=== PATIENT | female | born 1975 | race African-American/Black ===

== ENCOUNTER 2020-05-21 00:03 | Outpatient (CLI) | payer OTHER, SELFPAY ==
[2020-05-21 20:03] LABS: SARS-CoV-2 RNA PCR Negative
== END 2020-05-21 00:04 | disposition home or self-care (01) ==
LOC: ANHCOVIDDT 00:13
PROVIDERS: Visit Provider Student in an Organized Health Care Education/Training Program
DX: Z01.818 Encounter for other preprocedural examination (principal); Z11.59 Encounter for screening for other viral diseases
CPT/HCPCS: 87635; C9803; U0003

== ENCOUNTER 2020-05-21 08:00 | Outpatient (CLI) | payer OTHER, SELFPAY ==
[2020-05-21 08:31] LABS: Basophils Absolute Auto 0.1 K/mm3 (0.0-0.1); Basophils Percent Auto 0.7 % (0.2-1.2); Eosinophils Absolute Auto 0.3 K/mm3 (0-0.3); Eosinophils Percent Auto 4.3 % (0-4.4); Hematocrit 40.8 % (37.0-47.0); Hemoglobin 13.2 g/dL (12.0-15.0); Immature Granulocyte Absolute 0.01 K/mm3 (0.00-0.031); Immature Granulocyte Percent A 0.1 % (0-0.5); Lymphocytes Absolute Auto 2.99 K/mm3 (0.9-3.2); Lymphocytes Percent Auto 40.4 % (18.3-44.2); Mean Corpuscular HGB Conc 32.4 g/dl (32-36); Mean Corpuscular Hemoglobin 30.3 pg (26-34); Mean Corpuscular Volume 93.8 fl (80-100); Mean Platelet Volume 10.3 fl (7.4-10.4); Monocytes Absolute Auto 0.7 K/mm3 (0.1-0.6); Monocytes Percent Auto 8.8 % (2.6-8.5); Neutrophils Absolute Auto 3.4 K/mm3 (1.3-6.7); Neutrophils Percent Auto 45.7 % (45.5-73.1); Platelet Count Result 375 k/mm3 (150-375); Red Blood Count 4.35 M/mm3 (4.2-5.4); Red Cell Distribution Width 12.1 % (11.5-14.5); White Blood Count 7.4 K/mm3 (4.5-10.0)
== END 2020-05-21 08:01 | disposition home or self-care (01) ==
PROVIDERS: PCP Nurse Practitioner Family; Visit Provider Student in an Organized Health Care Education/Training Program
DX: Z01.818 Encounter for other preprocedural examination (principal); N94.6 Dysmenorrhea, unspecified
CPT/HCPCS: 36415; 85025; 86850; 86900; 86901

== ENCOUNTER 2020-05-23 11:03 | Inpatient (IN) | payer OTHER, SELFPAY ==
[2020-05-10 10:43] VITALS: BMI 45.3
--- NOTE | 2020-05-22 15:41 | PM.IMHP ---
H&P: HPI History of Present Illness Chief complaint: menorrhaghia, dysmenorrhea Narrative: Sue Andrade is a 44 year old female with a long history of AUB and dysmenorrhea. Patient is status post endometrial ablation in September 2019. Patient reported bothersome spotting after procedure and self-initiated OCPs. At postoperative visit, patient was advised to discontinue OCPs to further assess the effects of procedure. She was seen for an annual visit in 12/2019 and reported complete cessation of bleeding. Patient states that in January 2020, menses resumed and she bled for 5 days during the first week of the month. She reported onset of severe cramping a few days prior to onset of menses as well as during menses. States that cramping is so severe that it radiates inferiorly to inner thigh and back of thigh. She takes Ibuprofen with minimal relief. Reports similar occurrence with menses in February and March. States that she does not experience pain other than with menses, however, ablation did not completely stop menses. Patient declines further medical management and would like to proceed with a hysterectomy. Review of Systems Review of Systems: All systems reviewed & are unremarkable except as noted in HPI and below Constitutional: Constitutional: Reports as per HPI, Reports no additional constitutional complaints, Denies chills, Denies fever(s), Denies headache(s) and Denies night sweats Eyes: Eyes: Reports as per HPI and Reports no additional eye complaints ENT: Reports system reviewed and no additional complaints, except as documented, Reports as per HPI, Reports Normal hearing present and Denies headache(s) Cardiovascular: Cardiovascular: Reports as per HPI, Reports no additional cardiovascular complaints, Denies chest pain and Denies dyspnea Respiratory: Respiratory: Reports as per HPI, Reports no additional respiratory complaints, Denies cough and Denies dyspnea Gastrointestinal: Gastrointestinal: Reports as per HPI, Reports no additional gastrointestinal complaints, Denies abdominal pain, Denies change in bowel habits, Denies change in stool character, Denies nausea and Denies vomiting Genitourinary: Genitourinary: Reports no additional female genitourinary complaints, Reports as per HPI, Denies abnormal vaginal bleeding, Denies genital lesions, Denies hot flashes, Denies dyspareunia, Reports dysmenorrhea, Denies pelvic pain, Denies sexual dysfunction, Denies urinary incontinence, Denies vaginal discharge, Denies vaginal dryness and Denies vaginal odor Musculoskeletal: Musculoskeletal: Reports no additional musculoskeletal complaints and Reports as per HPI Integumentary/Breasts: Skin/Breast: Reports system reviewed and no additional complaints, except as docu, Reports as per HPI, Denies breast pain and Denies nipple discharge Neurologic: Reports system reviewed and no additional complaints, except as documented, Reports as per HPI, Reports Normal hearing present and Denies headache(s) Psychiatric: Psychiatric: Reports no additional psychiatric complaints, Reports as per HPI, Denies anxiety and Denies depression Endocrine: Endocrine: Reports no additional endocrine complaints and Reports as per HPI Hematologic/Lymphatic: Hematologic/Lymphatic: Reports no additional hematologic/lymphatic complaints and Reports as per HPI Allergic/Immunologic: Allergic/Immunologic: Reports no additional allergic/immunologic complaints and Reports as per HPI [facility] Social History Social History Smoking status: Never smoker Second hand tobacco smoke exposure: No Alcohol intake: current Drinks per week: 2 (NONE IN LAST WEEK) Substance use: never Meds Home Medications and Allergies Home Medications Medication Instructions Recorded Confirmed Type cholecalciferol (vitamin D3) 400 unit PO DAILY 09/26/19 05/10/20 History [Vitamin D3] fluticasone propionate 1 spray EACHNARE DAILY 09/26/1904/17
[2020-05-23] VITALS (21 sets, daily range): BP systolic 109–131; BP diastolic 62–81; PULSE 86–117; RESP 12–24; TEMP 36.2–37.9; O2SAT 92–100
[2020-05-23] MEDS: LACTATED RINGERS 1,000 ML 30 ML IV CONT ×3 (07:00→12:20)
--- NOTE | 2020-05-23 07:03 | WPDANESEPPF ---
Anes - Initial Pre Proc Eval Procedure: Operation Date: 05/23/20 07:30 Proposed Procedures p Total Abdominal Hysterectomy, Bilateral Salpingectomy - Ashley Cates MD Date/Time: 05/23/20 07:03 Surgeon: Ashley Cates MD Pre Op Diagnosis: menorrhaghia, dysmenorrhea Patient Data Age: 44 Gender: F Height: 5 ft 4 in Weight: 119.75 kg Allergies Allergy/AdvReac Type Severity Reaction Status Date / Time No Known Allergies Allergy Verified 05/10/20 10:44 Home Medications Medication Instructions Recorded Confirmed Type cholecalciferol (vitamin D3) 400 unit PO DAILY 09/26/19 05/10/20 History [Vitamin D3] fluticasone propionate 1 spray EACHNARE DAILY 09/26/19 05/10/20 History melatonin 5 mg PO HS PRN 09/26/19 05/10/20 History modafinil 200 mg PO QAM 09/26/19 05/10/20 History omeprazole 20 mg PO DAILY 09/26/19 05/10/20 History triamcinolone acetonide 1 applic TOPICAL PRN 09/26/19 05/10/20 History [place] 1 tablet PO DAILY 05/10/20 History Vitamin C 1 tablet PO DAILY 05/10/20 05/10/20 History biotin 10,000 mcg PO DAILY 05/10/20 05/10/20 History citalopram 20 mg PO DAILY PRN 05/10/20 05/10/20 History cyanocobalamin (vitamin B-12) 1,000 mcg PO DAILY 05/10/20 05/10/20 History [Vitamin B-12] multivitamin 1 tablet PO DAILY 05/10/20 05/10/20 History ondansetron HCl 8 mg PO DIRECTED PRN 05/10/20 05/10/20 History potassium gluconate 595 mg PO DAILY 05/10/20 05/10/20 History vitamin E 400 unit PO DAILY 05/10/20 05/10/20 History Patient hx anesthesia problems: none Family hx anesthesia problems: none PMFSH Past Medical History Medical History Abnormal uterine bleeding Anxiety Depression GERD (gastroesophageal reflux disease) BETTINA (obstructive sleep apnea) CPAP Surgical History Surgical History delivery delivered X 4 Gastric bypass status for obesity S/P endometrial ablation Status post bilateral breast reduction 1999 Family History Family History Sibling Diabetes mellitus Family history of malignant neoplasm of cervix Other Cerebrovascular accident Family history of malignant neoplasm of breast in first degree relative Social History Social History Smoking status: Never smoker Second hand tobacco smoke exposure: No Alcohol intake: current Drinks per week: 2 (NONE IN LAST WEEK) Substance use: never Anes - Eval Final PreProcedure Day of Procedure 05/23/20 07:03 Patient weight: morbidly obese Heart: regular rate and rhythm Lungs: clear to auscultation Airway: Mallampati scale class II Neurological: alert and oriented Last oral intake: >/= 8 hours ASA classification: III Emergent: no Anesthetic plan: proceed Anesthesia type and monitoring: general ETT and standard monitoring Informed Consent: The patient's anesthetic plan and its attendant risks and benefits were discussed with the patient/family/POA. Questions were solicited and answers provided to the satisfaction of the patient/family/POA.
[2020-05-23] MEDS: ACETAMINOPHEN 500 MG TABLET 1000 MG PO (07:10)
--- NOTE | 2020-05-23 07:19 | WPDHPUPDATE1 ---
History and Physical Update Update Date/Time: 05/23/20 07:19 History and Physical has been reviewed, including an updated exam of the patient. There are NO changes in the patient's condition. Risks, benefits, and alternatives have been discussed and questions answered. Patient agrees to proceed with procedure.
[2020-05-23] MEDS: PHENAZOPYRIDINE HCL 100 MG TABLET 200 MG PO (07:20)
[2020-05-23] MEDS: SCOPOLAMINE 1.5 MG PATCH TRANSDERM (07:24)
[2020-05-23] MEDS: ceFAZolin 2 GM/D5W 50 ML 2 GM/50 ML BAG IVPB (07:33)
[2020-05-23] MEDS: KETOROLAC 30 MG/ML VIAL (*BKC) IV PUSH (10:03)
[2020-05-23] MEDS: DEXTROSE 5%/0.45% SOD CHL 1,000 ML 150 ML IV CONT ×2 (13:10→21:57)
--- NOTE | 2020-05-23 13:22 | PM.PROC ---
Procedure Note - Detailed Date of procedure: 05/23/20 Pre-op diagnosis: menorrhaghia, dysmenorrhea Post-op diagnosis: same Procedure performed: Total abdominal hysterectomy Bilateral salpingectomy Description of procedure: The patient was taken to the operating room where she self transferred to the operating room table. She was placed in the dorsal supine position. General anesthesia was administered and found to be adequate. The patient was prepped and draped in the usual sterile fashion. A Pfannenstiel skin incision was made with a scalpel and carried through to the underlying layer of fascia with the Bovie. The fascia was incised in the midline and the incision was extended laterally with the use of forceps and Cerrato scissors. The inferior aspect of the fascial incision was grasped with Siva clamps, elevated, and the underlying rectus muscles were dissected off with Cerrato scissors. Attention was turned to the superior aspect of the fascial incision, which in a similar manner was grasped with Siva clamps, elevated, and the underlying rectus muscles also dissected off with Cerrato scissors. Dense, thick adhesions and scar tissue were noted in the midline making entry into the peritoneal cavity difficult in this area. Decision was made to access and enter peritoneal cavity just lateral to the midline. The right rectus muscle was transected approximately 1.5 cm to the right side to facilitate visualization and entry into the peritoneal cavity. The peritoneum was identified and grasped with Allis clamps and entered sharply with Metzenbaum scissors. the uterus and surrounding structures were palpated with fingers and noted to be free of any posterior or lateral adhesions. Due to the dense adhesions from the anterior surface of the uterus to the abdominal wall, with fingers placed around the fundus of the uterus, dissection beneath the fascia anterior to the uterus continued with Bovie as well as sharp dissection with Cerrato scissors until the uterus was completely freed and mobilized. Two lap pads were placed in the abdomen to displace the bowel cephalad and laterally. Pean clamps were placed near the left and right uterine cornua for traction and elevation. The cervix was well visualized and palpated. The bladder was noted to be mostly inferior to the cervix. The right round ligament was identified, grasped with Wilmar clamp, and suture ligated. The round ligament was transected with Bovie. The anterior leaf of the broad ligament was carefully dissected towards the midline. An incision in the posterior leaf of the broad ligament on the right side was created with the Bovie. The right fallopian tube was identified and grasped with a Wilmar clamp. The LigaSure device was used to transect the mesosalpinx beneath the tube to the level of the cornua. The LigaSure device was then used to transect the utero-ovarian ligament on the right side. Dissection of the posterior leaf of the broad ligament was performed. The uterine artery was skeletonized and well visualized. The LigaSure device was used to cauterize the uterine artery on this side. The cardinal ligaments were serially ligated and transected with the use of LigaSure device until the level of uterosacral ligaments was reached. Attention was then turned to the patient's left side. The left round ligament was identified, grasped with a [place] clamp, and suture ligated. The round ligament was transected with the Bovie and the anterior leaf of the broad ligament was carefully dissected towards the midline. The opposing ends were joined in the midline and a bladder flap was created to ensure the bladder was adequately displaced inferiorly. An incision in the posterior leaf of the broad ligament on the left side was created with the Bovie. The left fallopian tube was identified and grasped with Wilmar clamp. The LigaSure device was used to transect the mesosalpinx beneath the tube to the level of the cornua. The LigaSure de
[2020-05-23] MEDS: IBUPROFEN IV 800 MG/200 ML 800 MG/200 ML BAG 400 MG IVPB (19:56)
--- NOTE | 2020-05-23 19:57 | OBPPTRN ---
Patient transferred to post room #289 via bed. Oriented to unit, room, information board, admission packet and security measures. Patient verbalizes understanding.
[2020-05-23] MEDS: DICLOFENAC SODIUM 0.1% OPHTH SOLN 2.5 ML BOTTLE 1 DROP EACH EYE (20:00)
[2020-05-23] MEDS: IBUPROFEN 400 MG TABLET 800 MG PO (21:26)
[2020-05-23] MEDS: PROPARACAINE HCL 0.5% 15 ML OPHTH SOLN 1 DROP EACH EYE (21:42)
[2020-05-24 00:30] VITALS: BP 122/65; PULSE 119; RESP 12; TEMP 37.4
[2020-05-24] MEDS: IBUPROFEN 400 MG TABLET 800 MG PO ×3 (03:07→18:25)
[2020-05-24 05:00] VITALS: BP 121/77; PULSE 111; RESP 14; TEMP 36.2
[2020-05-24 05:42] LABS: Basophils Percent Auto 0.2 % (0.2-1.2); Eosinophils Percent Auto 0.1 % (0-4.4); Hematocrit 35.6 % (37.0-47.0); Hemoglobin 11.4 g/dL (12.0-15.0); Immature Granulocyte Absolute 0.05 K/mm3 (0.00-0.031); Immature Granulocyte Percent A 0.3 % (0-0.5); Lymphocytes Absolute Auto 1.76 K/mm3 (0.9-3.2); Lymphocytes Percent Auto 11.2 % (18.3-44.2); Mean Corpuscular Hemoglobin 30.5 pg (26-34); Mean Corpuscular Volume 95.2 fl (80-100); Mean Platelet Volume 10.5 fl (7.4-10.4); Monocytes Absolute Auto 1.4 K/mm3 (0.1-0.6); Monocytes Percent Auto 9.2 % (2.6-8.5); Neutrophils Absolute Auto 12.4 K/mm3 (1.3-6.7); Platelet Count Result 320 k/mm3 (150-375); Red Blood Count 3.74 M/mm3 (4.2-5.4); Red Cell Distribution Width 12.4 % (11.5-14.5); White Blood Count 15.7 K/mm3 (4.5-10.0)
[2020-05-24 05:56] LABS: Blood Urea Nitrogen 6 mg/dL (7-17); Calcium 8.4 mg/dL (8.4-10.2); Carbon Dioxide 28 mmol/L (22-30); Chloride 98 mmol/L (98-107); Estimated CRCL calculation 110 ml/min; Estimated Glomerular Filt Rate > 60; Glucose 351 mg/dL (65-105); Potassium 3.9 mmol/L (3.4-5.0); Sodium 132 mmol/L (137-145)
--- NOTE | 2020-05-24 07:22 | P.PNAN_ITS ---
Anes - Prog Note Post-Op Date/Time: 05/24/20 07:22 Cardiovascular status: normal Respiratory status: normal Airway patency: baseline Mental status: baseline Post-Op hydration status: normal Vital Signs: Last Vital Signs Temp 36.2 C L 05/24/20 05:00 Pulse 111 H 05/24/20 05:00 Resp 14 05/24/20 05:00 BP 121/77 05/24/20 05:00 Pulse Ox 96 05/23/20 17:30 I/O: Intake & Output 05/23/20 05/23/20 05/24/20 15:59 23:59 07:59 Intake Total 7602 622 8976 Output Total 575 1000 2800 Balance 831 -700 -121 Laboratory Tests 05/24/20 04:42 05/24/20 04:42 05/24/20 05/24/20 04:42 04:42 WBC 15.7 H RBC 3.74 L Hgb 11.4 L Hct 35.6 L MCV 95.2 MCH 30.5 MCHC 32.0 RDW 12.4 Plt Count 320 MPV 10.5 H Immature Gran % (Auto) 0.3 Neut % (Auto) 79.0 H Lymph % (Auto) 11.2 L [place] % (Auto) 9.2 H Eos % (Auto) 0.1 Baso % (Auto) 0.2 Lymph # (Auto) 1.76 [place] # (Auto) 1.4 H Eos # (Auto) 0.0 Baso # (Auto) 0.0 Abs Immat Gran (auto) 0.05 H Absolute Neuts (auto) 12.4 H Absolute Nucleated RBC 0.0 Nucleated RBC % 0.0 Sodium 132 L Potassium 3.9 Chloride 98 Carbon Dioxide 28 BUN 6 L Creatinine 0.70 Estim Creat Clear Calc 110 Estimated GFR > 60 Glucose 351 H Calcium 8.4 Post-procedural complaints: none Patient Feedback: Patient satisfied with anesthetic care.
--- NOTE | 2020-05-24 07:27 | PM.GYNPNOP ---
TOOL AND DIE REPAIR - A/P Assessment and plan (1) H/O: hysterectomy: Code(s): Z90.710 - Acquired absence of both cervix and uterus Status: Acute Assessment and Plan: POD#1 s/p NAI, bilateral salpingectomy Doing well Continue routine postop care Encourage ambulation and use of IS Continue PO pain medication Possible d/c home tomorrow Postoperative Procedures: Procedures Operation Date: 05/23/20 07:30 Actual Procedures Side Surgeon p Total Abdominal Hysterectomy, Bilateral Salpingectomy Bilateral Ashley Cates MD Time Spent With Patient Time: Total time spent is greater than 50% in coordination of care (as documented) at patient's floor/unit and/or counseling patient: Time with patient: less than 15 minutes TOOL AND DIE REPAIR- PN:Subj Post-Op Subjective Date/time seen: 05/24/20 07:27 Patient doing well. IV infiltrated last night and was removed. Patient declined to have IV reinserted. Had eye discomfort yesterday, resolved. She reports adequate pain control with PO pain medication. Denies any headache, chest pain, SOB, N/V. Tolerating clears. Ambulating well. Gutierrez catheter removed. Has voided. +flatus. Exam Const: General: comfortable and no acute distress Resp: Auscultation: clear to auscultation bilaterally Cardio: Rate: regular rate Rhythm: regular rhythm GI: Inspection: non-distended GI Palp: Yes Soft to palpation and No Tenderness to palpation present (GI) Other: abdominal binder in place, incision c/d/i Extrem: Right lower extremity: no edema Left lower extremity: no edema Other: no calf tenderness TOOL AND DIE REPAIR - PN: Obj Data Vital Signs Vital Signs: Vital Signs - 24 hr 05/23/20 10:53 05/23/20 11:05 05/23/20 11:19 Temperature 36.2 C L Pulse Rate 92 86 89 Respiratory Rate 24 H 21 H 21 H Blood Pressure 111/62 116/72 116/72 Pulse Oximetry 99 99 99 05/23/20 11:40 05/23/20 11:55 05/23/20 12:10 Temperature Pulse Rate 92 96 95 Respiratory Rate 18 17 16 Blood Pressure 114/74 121/81 121/77 Pulse Oximetry 100 99 05/23/20 12:25 05/23/20 12:40 05/23/20 12:50 Temperature 36.4 C Pulse Rate 103 H 105 H 106 H Respiratory Rate 19 20 18 Blood Pressure 117/75 109/75 Pulse Oximetry 95 92 92 05/23/20 12:58 05/23/20 13:15 05/23/20 13:30 Temperature 36.6 C Pulse Rate 116 H 96 101 H Respiratory Rate 16 Blood Pressure 118/75 127/81 119/76 Pulse Oximetry 96 98 95 05/23/20 14:00 05/23/20 14:30 05/23/20 15:29 Temperature Pulse Rate 103 H 104 H Respiratory Rate 16 Blood Pressure 117/71 115/74 Pulse Oximetry 95 96 99 05/23/20 15:30 05/23/20 16:30 05/23/20 16:57 Temperature 37.4 C Pulse Rate 95 104 H 110 H Respiratory Rate 16 16 Blood Pressure 120/78 131/79 122/76 Pulse Oximetry 99 100 96 05/23/20 17:30 05/23/20 20:30 05/24/20 00:30 Temperature 37.9 C H 37.4 C Pulse Rate 117 H 119 H Respiratory Rate 16 12 12 Blood Pressure 129/81 122/65 Pulse Oximetry 96 05/24/20 05:00 Temperature 36.2 C L Pulse Rate 111 H Respiratory Rate 14 Blood Pressure 121/77 Pulse Oximetry Intake/Output Intake/Output: Intake & Output 05/21/20 05/22/20 05/23/20 05/24/20 23:59 23:59 23:59 23:59 Intake Total 1550 2200 Output Total 1575 2800 Balance -25 -600 Meds/Results Medications: Active Medications Generic Name Dose Route Start Last Admin Trade Name Freq PRN Reason Stop Dose Admin Hydrocodone Bitart/Acetaminophen 1 tab 05/23/20 11:03 [place] 5-325 Mg PO Q3H PRN Pain Rated 5 or Less Hydrocodone Bitart/Acetaminophen 1 tab 05/23/20 11:03 05/24/20 04:57 [place] 10-325 Mg PO 1 tab Q3H PRN Administration Pain Rated 6 or Greater Artificial Tears 1 drop 05/23/20 16:29 05/23/20 21:53 Artificial Tears EACH EYE 1 drop Q2H PRN Administration Dry Eye(s) Citalopram Hydrobromide 20 mg 05/24/20 06:48 Celexa PO DAILY PRN Anxiety Diclofenac Sodium 1 drop 05/23/20 22:00 05/23/20 20:00 Voltaren 0.1% Ophth Tamika
[2020-05-24 08:30] VITALS: BP 118/75; PULSE 102; RESP 22; TEMP 36.9; O2SAT 96
[2020-05-24] MEDS: PANTOPRAZOLE 40 MG TABLET PO (08:35)
[2020-05-24] MEDS: DOCUSATE SODIUM 100 MG CAPSULE PO ×2 (08:38→18:26)
[2020-05-24] MEDS: PANTOPRAZOLE SOD SESQUIHYDRATE 20 MG TAB PO (08:39)
[2020-05-24] MEDS: SIMETHICONE 80 MG TAB.CHEW PO (19:24)
[2020-05-24 21:29] VITALS: BP 122/78; PULSE 119; RESP 14; TEMP 37.6
[2020-05-25] MEDS: IBUPROFEN 400 MG TABLET 800 MG PO (02:48)
[2020-05-25] MEDS: DOCUSATE SODIUM 100 MG CAPSULE PO (07:42)
[2020-05-25 07:45] VITALS: BP 127/92; PULSE 98; RESP 18; TEMP 37.1; O2SAT 98
--- NOTE | 2020-05-25 08:28 | PM.GYNPNOP ---
EDUCATION DEPARTMENT CHAIR - A/P Assessment and plan (1) H/O: hysterectomy: Code(s): Z90.710 - Acquired absence of both cervix and uterus Status: Acute Assessment and Plan: POD#2 s/p NAI, b/l salpingectomy Doing well Continue routine postop care Discharge home today in stable condition Emergency precautions reviewed F/u at postop visit in 2 weeks unless indicated sooner Postoperative Procedures: Procedures Operation Date: 05/23/20 07:30 Actual Procedures Side Surgeon p Total Abdominal Hysterectomy, Bilateral Salpingectomy Bilateral Ashley Cates MD Time Spent With Patient Time: Total time spent is greater than 50% in coordination of care (as documented) at patient's floor/unit and/or counseling patient: Time with patient: less than 15 minutes EDUCATION DEPARTMENT CHAIR- PN:Subj Post-Op Subjective Date/time seen: 05/25/20 08:28 Patient doing well this morning. Reports adequate pain control with PO pain medication. Denies any headache, chest pain, shortness of breath, nausea, or vomiting. Tolerating regular diet. Ambulating well. Voiding without difficulty. Positive flatus. No bowel movement. Exam Const: General: comfortable and no acute distress Resp: Auscultation: clear to auscultation bilaterally Cardio: Rate: regular rate Rhythm: regular rhythm GI: GI Palp: Yes Soft to palpation and No Tenderness to palpation present (GI) Auscultation: normal bowel sounds Other: nondistended, inc c/d/i Extrem: Right lower extremity: no edema Left lower extremity: no edema Other: no calf tenderness EDUCATION DEPARTMENT CHAIR - PN: Obj Data Vital Signs Vital Signs: Vital Signs - 24 hr 05/24/20 08:30 05/24/20 21:29 Temperature 36.9 C 37.6 C Pulse Rate 102 H 119 H Respiratory Rate 22 H 14 Blood Pressure 118/75 122/78 Pulse Oximetry 96 Intake/Output Intake/Output: Intake & Output 05/22/20 05/23/20 05/24/20 05/25/20 23:59 23:59 23:59 23:59 Intake Total 1550 2200 Output Total 1575 3600 Balance -25 -1400 Meds/Results Medications: Active Medications Generic Name Dose Route Start Last Admin Trade Name Freq PRN Reason Stop Dose Admin Hydrocodone Bitart/Acetaminophen 1 tab 05/23/20 11:03 [place] 5-325 Mg PO Q3H PRN Pain Rated 5 or Less Hydrocodone Bitart/Acetaminophen 1 tab 05/23/20 11:03 05/25/20 07:42 [place] 10-325 Mg PO 1 tab Q3H PRN Administration Pain Rated 6 or Greater Artificial Tears 1 drop 05/23/20 16:29 05/23/20 21:53 Artificial Tears EACH EYE 1 drop Q2H PRN Administration Dry Eye(s) Citalopram Hydrobromide 20 mg 05/24/20 06:48 Celexa PO DAILY PRN Anxiety Diclofenac Sodium 1 drop 05/23/20 22:00 05/25/20 06:25 Voltaren 0.1% Ophth Soln EACH EYE 05/27/20 22:01 Not Given Q8HR BOB Docusate Sodium 100 mg 05/23/20 17:00 05/25/20 07:42 Colace Capsule PO 100 mg BID BOB Administration Hydromorphone HCl 6 mg in 30 mls @ 0 mls/hr 05/23/20 13:12 05/23/20 15:29 Dilaudid 0.2 Mg/Ml [place] IV CONT 1 ml/hr .Q0M PRN 1 mls/hr DIABETOLOGIST Management Administration Protocol Per Protocol Ibuprofen 800 mg 05/23/20 21:01 05/25/20 02:48 Motrin PO 800 mg Q6H PRN Administration Abdominal Cramping Melatonin 5 mg 05/23/20 21:00 05/25/20 00:55 Melatonin PO Not Given HS BOB Metoclopramide HCl 10 mg 05/23/20 11:03 Reglan IV PUSH Q6H PRN Nausea Modafinil 200 mg 05/24/20 09:00 05/24/20 08:39 Provigil PO Not Given QAM [facility] Ondansetron HCl 4 mg 05/23/20 11:03 Zofran Inj IV PUSH Q6H PRN Nausea Pantoprazole Sodium 40 mg 05/24/20 09:00 05/24/20 08:35 Protonix PO 06/23/20 09:01 40 mg DAILY BOB Administration Simethicone 80 mg 05/23/20 11:03 05/24/20 19:24 Mylicon PO 80 mg Q2H PRN Administration Gas Labs CBC & Chem 7: 05/24/20 04:42 05/24/20 04:42
[2020-05-25] MEDS: PANTOPRAZOLE 40 MG TABLET PO (09:03)
--- NOTE | 2020-07-05 11:50 | PM.DS ---
DS: Admitting Diagnosis Admitting Diagnosis Admitting Diagnosis: menorrhaghia, dysmenorrhea DS: Summary Time Spent with Patient Time attestation: Total time spent providing and/or coordinating discharge services: DS: Data Data Completed and Pending Completed studies during hospitalization: Pending at discharge 05/23/20 09:34 Surgical [PTH] Routine Discharge Plan Discharge Attending physician on discharge: Ashley Cates Discharging Clinician: Ashley Cates Anticipated Discharge Date/Time: 05/25/20 08:32 Patient Disposition: Home, Self-Care Activity: may drive after 2 weeks, as tolerated and pelvic rest Diet: regular Discharge Instructions: Call office ([phone]) to schedule the following appointments: 1. Postoperative/wound check in 2 weeks. 2. Postoperative visit in 4-6 weeks. You may take Ibuprofen 600mg every 6 hours as needed for pain. I have sent a prescription for a stronger pain medication, [place], to your pharmacy. You may take this as prescribed for breakthrough pain (pain that is not controlled with Ibuprofen). No driving for at least two weeks. You also may not drive while taking narcotics. Pain medication may make you constipated. It may be helpful to take an [id number] stool softener, such as Colace, Dulcolax, and/or Senokot, along with the pain medication to help lessen constipation. Call office or go to ED for pain not controlled with medication, headache, chest pain, shortness of breath, fever, chills, persistent nausea or vomiting, severe abdominal pain, heavy vaginal bleeding or leakage of fluid, foul vaginal discharge or odor, any redness near incision, severe pain, or pus or drainage from incision site. Patient Instructions: Antibiotic Form, Hysterectomy (DC) Stand Alone Forms: General Discharge Information Follow-up/Referrals: Ashley Cates MD [Physician] - Discharge Medications: Continued omeprazole 20 mg Capsule,Delayed Release(Dr/Ec) 20 mg PO DAILY RF: 0 fluticasone propionate 50 MCG 1 spray EACHNARE DAILY RF: 0 modafinil 200 mg Tablet 200 mg PO QAM RF: 0 triamcinolone acetonide 0.5 % Ointment 1 applic TOPICAL PRN RF: 0 melatonin 5 mg Tablet 5 mg PO HS PRN (Reason: Insomnia) RF: 0 cholecalciferol (vitamin D3) [Vitamin D3] 400 unit Capsule 400 unit PO DAILY RF: 0 multivitamin Tablet 1 tablet PO DAILY RF: 0 Vitamin C 1 tablet PO DAILY RF: 0 ondansetron HCl 8 mg Tablet 8 mg PO DIRECTED PRN (Reason: Nausea) RF: 0 cyanocobalamin (vitamin B-12) [Vitamin B-12] 1,000 mcg Tablet 1,000 mcg PO DAILY RF: 0 citalopram 20 mg Tablet 20 mg PO DAILY PRN (Reason: Anxiety) RF: 0 biotin 10,000 mcg Capsule 10,000 mcg PO DAILY RF: 0 vitamin E 400 unit Capsule 400 unit PO DAILY RF: 0 potassium gluconate 595 mg (99 mg) Tablet 595 mg PO DAILY RF: 0 [place] 1 tablet PO DAILY RF: 0 No Action sodium chloride [Sterile Saline] 0.9 % solution 1 irrig IRRIGATION BID PRN (Reason: wound care) Qty: 1000 RF: 0 (DME) gauze bandage 4 X 4 bandage See Rx Instructions .ROUTE .MEDSUPPLY Qty: 120 RF: 0 (DME) Curity Abdominal Pad 7 1/2 X 8 bandage See Rx Instructions .ROUTE .MEDSUPPLY Qty: 20 RF: 0 hydrocodone-acetaminophen 5-325 mg tablet 1 - 2 tablet PO Q4-6H PRN (Reason: pain) Qty: 30 RF: 0 hydrocodone-acetaminophen [[place]] 5-325 mg tablet 1 tablet PO Q4H PRN (Reason: pain) Qty: 20 RF: 0 Date of admission: 05/23/20 11:03 Primary Care Provider: ALEXIAADITI Admitting Provider: Ashley Cates Discharge Date/Time: 05/25/20 11:35 Attending physician on admission: Ashley Cates Condition: Stable
== END 2020-05-25 11:35 | disposition home or self-care (01) | DRG 742 ==
LOC: ANHOB2 13:10
PROVIDERS: Admitting Provider Student in an Organized Health Care Education/Training Program; PCP Nurse Practitioner Family; Visit Provider Student in an Organized Health Care Education/Training Program
PROC: 0UT94ZZ Resection of Uterus, Percutaneous Endoscopic Approach (ICD-10-PCS; principal; 2020-05-23 07:30)
DX: N92.0 Excessive and frequent menstruation with regular cycle (principal); Z68.41 Body mass index [BMI] 40.0-44.9, adult; N94.6 Dysmenorrhea, unspecified; K21.9 Gastro-esophageal reflux disease without esophagitis; G47.33 Obstructive sleep apnea (adult) (pediatric); Z98.84 Bariatric surgery status; E66.01 Morbid (severe) obesity due to excess calories
CPT/HCPCS: 36415; 80048; 85025; 88307; A9270; J0131; J0690; J1100; J1170; J1741; J1885; J2250; J2405; J2704; J2710; J3010; J7120